=== PATIENT | male | born 1965 | race Caucasian/White ===

== ENCOUNTER 2019-03-25 10:04 | Inpatient (IN) ==
[2019-03-25 10:47] LABS: URINE SOURCE CLEAN CATCH
[2019-03-25 10:54] LABS: BILIRUBIN URINE NEGATIVE (NEGATIVE); BLOOD URINE MODERATE (NEGATIVE); COLOR YELLOW; GLUCOSE URINE NEGATIVE (NEGATIVE); KETONE URINE NEGATIVE (NEGATIVE); LEUKOCYTES URINE NEGATIVE (NEGATIVE); NITRITE URINE NEGATIVE (NEGATIVE); PH URINE 5.5; PROTEIN URINE TRACE mg/dL (NEGATIVE); SP GRAVITY URINE 1.026; TURBIDITY URINE CLEAR (CLEAR); UROBILINOGEN URINE NORMAL (NORMAL)
[2019-03-25 10:56] LABS: UR EPITHELIAL CELLS <10 /HPF (<10); URINE BACTERIA NEGATIVE /HPF; URINE RBC <10 /HPF (<10); URINE WBC <10 /HPF (<10)
[2019-03-25 11:08] LABS: BASO# 0.02 X1000 (0.0-0.2); BASO% 0.1 % (0.0-0.8); EOS# 0.01 X1000 (0.0-0.7); HEMATOCRIT 44.7 % (42.0-52.0); IMM GRAN# 0.09 X1000 (0.0-0.04); IMM GRAN% 0.3 % (0.0-0.5); LYMPH# 1.26 X1000 (1.2-3.4); LYMPH% 4.4 % (20.5-51.1); MCH 30.9 PG (27-31); MCHC 33.6 g/dL (33-37); MONO# 0.73 X1000 (0.11-0.59); MONO% 2.5 % (1.7-9.3); MPV 9.9 FL (7.4-10.4); NEUT# 26.82 X1000 (1.4-6.5); NEUT% 92.7 % (42.2-75.2); PLT 269 X1000 (130-400); RBC 4.86 XMIL (4.7-6.1); RDW 14.6 % (11.5-14.5); WBC 28.93 X1000 (4.8-10.8)
[2019-03-25] MEDS ORDERED: MORPHINE IV ONE ×2 (11:11→12:39)
--- NOTE | 2019-03-25 11:27 | PROVIDER DOCUMENTATION ---
HPI-Abdominal Pain/GI Problem - General Chief Complaint: Flank Pain Stated Complaint: STOMACH BACK PAIN Time Seen by Provider: 03/25/19 10:25 Source: patient Allergies/Adverse Reactions: Patient Allergies Allergy/AdvReac Type Severity Reaction Status Date / Time Penicillins Allergy Unknown Verified 03/25/19 10:11 - History of Present Illness-ABD Nature of Presenting Problems: Patient is a 53yo M who presents w/ c/o bilateral "sharp" lower quadrant abdo rachell pain that began yesterday afternoon. Reports the pain radiates to his low back. States the pain began yesterday after he took a laxative for constipation. Reports since the laxative, he has been having the severe abdominal pain. Reports a few episodes of diarrhea last night. Patient reports some nausea and subjective fever. Also reports some decreased urine output. States he was diagnosed by his PCP 1 month ago with Diverticulitis, based on symptom presentation, and given 2 different antibiotics for which he is unsure of the name. Patient reports he is unable to ease the abdominal pain. Afebrile in Triage (98.1). Patient appears to be in moderate distress. Abdominal Pain Onset Location: reports: RLQ, LLQ Pain Radiation: reports: back Quality of Pain: reports: sharp Severity in ED: reports: moderate Onset/Duration: reports: last night Timing: reports: still present Activities at Onset: reports: other (post laxative usage) Exposure to sick contacts?: No Modifying Factors: improves with: nothing Associated Symptoms: reports: diarrhea, fever/chills, nausea. denies: chest pain, shortness of breath, syncope, vomiting Last BM: last night Dark Stools Present?: reports: none noticed Rectal Bleeding: reports: none Rectal Pain: reports: none Emesis Description: reports: none Bruising or Bleeding Gums?: No Similar Symptoms Previously?: Yes (hx diverticulitis) Recently seen or treated by another doctor?: No Review of Systems - Adult - REVIEW OF SYSTEMS - ADULT Constitutional: reports: see HPI, chills, fever Eyes: reports: no symptoms reported Ears, Nose, Mouth & Throat: reports: no symptoms reported Cardiovascular: reports: no symptoms reported. denies: chest pain, palpitations Respiratory: reports: no symptoms reported. denies: cough, dyspnea on exertion, shortness of breath Gastrointestinal: reports: see HPI, abdominal pain, constipation, diarrhea, nausea. denies: vomiting Genitourinary: reports: see HPI, urinary retention. denies: dysuria, frequency Musculoskeletal: reports: see HPI, back pain. denies: neck pain Integumentary: reports: no symptoms reported Neurological: reports: no symptoms reported. denies: dizziness/vertigo, headache/migraines Psychiatric: reports: no symptoms reported Past History - Adult - PAST MEDICAL HISTORY-ADULT Review of Records: reports: Nursing Assessment Review, Medications Reviewed Gastrointestinal: reports: diverticulosis - IMMUNIZATION STATUS Childhood Immunizations: See Nurse Assessment Flu Vaccine: See Nurse Assessment - FAMILY HISTORY Family History: reviewed, not pertinent Physical Exam-General - PHYSICAL EXAM-ADULT Initial Vital Signs Reviewed: Yes - CONSTITUTIONAL General Appearance: alert, moderate distress. negative: lethargic, slow to respond, obtunded - EYES Eyes: PERRL/EOMI, pink conjunctivae - HEAD, EARS, NOSE, MOUTH & THROAT HENMT: normocephalic/atraumatic, moist mucous membranes - NECK Neck: non-tender, full range of motion, supple, normal inspection - RESPIRATORY Respiratory: chest non-tender, lungs clear, normal breath sounds, no pleuratic chest pain, no respiratory distress, no accessory muscle use. negative: crackles, rales, rhonchi, stridor, wheezing, retractions, splinting - CARDIOVASCULAR Cardiovascular: regular rate, rhythm, no gallop - GASTROINTESTINAL (ABDOMEN) Abdominal Exam: no organomegaly, abnormal bowel sounds (hypoactive all quadrants), tenderness Progress - PLAN OF CARE/RESULTS Progress/Plan/Lab Results: Vital Signs - 8 hr 03/25/19 10:07 Temperature 98.1 F Pulse Rate 84 Respiratory Rate 22 Blood Pressure 105/65 O2 Sat by Pulse Oximetry 96 Laboratory Results - last 24 hr 03/25/19 03/25/19 10:32 10:43 WBC 28.93 H RBC 4.86 Hgb 15.0 Hct 44.7 MCV 92.0 MCH 30.9 MCHC 33.6 RDW Std Deviation 14.6 H Plt Count 269 MPV 9.9 Immature Gran % (Auto) 0.3 Neut % (Auto) 92.7 H Lymph % (Auto) 4.4 L [place] % (Auto) 2.5 Eos % (Auto) 0.0 Baso % (Auto) 0.1 Immature Gran # (Auto) 0.09 H Neut # (Auto) 26.82 H Lymph # (Auto) 1.26 [place] # (Auto) 0.73 H Eos # (Auto) 0.01 Baso # (Auto) 0.02 Urine Source CLEAN CATCH Urine Color YELLOW Urine Turbidity CLEAR Urine pH 5.5 Ur Specific [place] 1.026 Urine Protein TRACE A Ur Glucose (Stick) NEGATIVE Ur Ketones (Stick) NEGATIVE Urine Blood MODERATE A Urine Nitrite NEGATIVE Urine Bilirubin NEGATIVE Urobilinogen Dipstick NORMAL Urine Leukocytes NEGATIVE Urine WBC (Auto) <10 Urine RBC (Auto) <10 U Epithel Cells (Auto) <10 Urine Bacteria (Auto) NEGATIVE Orders Category Date Time Status Saline Loc NOW Care 03/25/19 10:24 Active NPO Diet 03/25/19 11:11 Active CBC WITH ELECTRONIC DIFF [HEME] Stat Lab 03/25/19 10:43 Results COMPREHENSIVE METABOLIC PANEL [CHEM] Stat Lab 03/25/19 10:43 Received LIPASE [CHEM] Stat Lab 03/25/19 10:43 Received URINALYSIS W/POSS RFLX CULT [URINALYSIS] Stat Lab 03/25/19 10:32 Completed Morphine Med 03/25/19 11:11 Discontinued 2 mg IV NOW ONE Result Diagrams: 03/25/19 10:43 03/25/19 10:43 - REASSESSMENT Reassessment #1 Time Reassessed: 14:29 Status: other (Dr. Ramírez @ bedside) - CT/MRI 1 CT Study: Abdomen, Pelvis Impression: See EMR Report ([facility] - [address] [place] [address] [address] [address] [facility] - [address] [place] [address] Department of Imaging Patient: JOEL ALY Date: 03/25/19MR#: [id number] : 1965ADM Status: REG ERAt#: [id number] Age/Sex: 53/MRoom/Bed: Loc: ED Ordering Physician: Tosin Mistry Family Physician: Thiago Buck DO Reason for Procedure: abd pain/leukocytosis/hx diverticulitis Signed CT ABD/PELVIS W/IV CONT ONLY - 03/25/2019 INDICATION: abd pain/leukocytosis/hx diverticulitis COMPARISON: None FINDINGS: The lung bases are grossly clear. There is significant inflammation in the mid sigmoid colon compatible with diverticulitis. There is trace pelvic free fluid. There is also some trace free air in the upper abdomen. No bowel obstruction. Normal appendix. Urinary bladder, pelvis, and rectum are normal. Abdominal organs are normal. IMPRESSION: Sigmoid colon diverticulitis. Small amount of free air. Trace pelvic free fluid. This report was discussed with Tosin mistry on 03/25/2019 at 2:00 PM and was readback. This exam was pe rformed using automated exposure control, adjustment of mA or kV according to patient size, and/or use of iterative reconstruction technique Electronically signed by Geoff Aggarwal 03/25/2019 2:06 PM 03/25/19 1406 Interpreting Physician: Geoff Aggarwal MD Dictated Date/Time: 03/25/19 1352 cc: Tosin Mistry; Thiago Buck DO) - CONSULTS/PCP/HOSPITALIST Notification #1 *Consult/PCP/Hospitalist*: Darrell Surgeon Time Discussed: 14:20 Consult Disposition: Will see in ED Departure - Departure Date of Disposition Decision: 03/25/19 Time of Disposition Decision: 14:20 DIAGNOSIS: Diverticulitis of sigmoid colon, Bowel perforation Leukocytosis Qualifiers: Leukocytosis type: unspecified Qualified Code(s): D72.829 - Elevated white blood cell count, unspecified Disposition: ADMITTED INPATIENT 09 Certified Medical Emergency: Emergent Condition: Fair Referrals and Follow-Ups: Thiago Buck DO [Primary Care Provider] - - Critical Care Note This patient required my direct & personal management of CC.: No Attestation - Physician/ MADY Attestation Patient care was provided by Advanced Practice Provider:: Yes Advanced Practice Provider:: Tosin Mistry Advanced Practice Provider documentation review:: The Mid-level provider documentation, treatment plan and medical decision making was reviewed by the physician who agrees with all treatment and medical decision making by the MLP. The physician spent face to face time with patient:: No Advanced Practice Provider documentation review:: Supervising physician onsite and consulted in the evaluation and care of this patient. The physician did not have a face to face encounter with the patient.
[2019-03-25 11:54] LABS: AGAP 15; ALB/GLOB RATIO 1.5; ALBUMIN 3.7 g/dL (3.5-5.0); ALKALINE PHOSPHATASE 53 U/L (32-122); BUN 9 mg/dL (8-22); CALCIUM 8.3 mg/dL (8.8-10.2); CHLORIDE 104 mmol/L (98-107); COSMO 284; CREATININE 0.8 mg/dL (0.7-1.2); ESTIMATED GFR > 60; GLUCOSE 146 mg/dL (70-104); GOT 13 U/L (10-34); GPT 9 U/L (10-44); LIPASE 15 U/L (13-60); POTASSIUM 3.3 mmol/L (3.5-5.1); SODIUM 142 mmol/L (136-145); TCO2 23 mmol/L (25-35); TOTAL BILIRUBIN 0.62 mg/dL (0.20-1.00); TOTAL PROTEIN 6.2 g/dL (6.3-8.3)
[2019-03-25 11:58] LABS: ANISOCYTOSIS 1+; BANDS 3 % (0-1); LYMPHS 6 % (21-51); MONO 3 % (1-9); SEGS 88 % (42-75)
--- NOTE | 2019-03-25 14:08 | Diag Imaging Result Doc PS360 ---
CT ABD/PELVIS W/IV CONT ONLY - 03/25/2019 INDICATION: abd pain/leukocytosis/hx diverticulitis COMPARISON: None FINDINGS: The lung bases are grossly clear. There is significant inflammation in the mid sigmoid colon compatible with diverticulitis. There is trace pelvic free fluid. There is also some trace free air in the upper abdomen. No bowel obstruction. Normal appendix. Urinary bladder, pelvis, and rectum are normal. Abdominal organs are normal. IMPRESSION: Sigmoid colon diverticulitis. Small amount of free air. Trace pelvic free fluid. This report was discussed with Tosin mistry on 03/25/2019 at 2:00 PM and was readback. This exam was performed using automated exposure control, adjustment of mA or kV according to patient size, and/or use of iterative reconstruction technique Electronically signed by Geoff Aggarwal 03/25/2019 2:06 PM
[2019-03-25 14:14] LABS: INR 1.05; PROTIME 14.5 Seconds (11.0-16.0)
[2019-03-25 14:15] LABS: PTT 30.9 Seconds (22.3-41.8)
[2019-03-25] MEDS ORDERED: LEVAQUIN 500 MG/D5W 500 MG/100 ML IVPB IV ONE (14:16)
[2019-03-25] MEDS ORDERED: DILAUDID IV ONE (14:41)
[2019-03-25] MEDS ORDERED: MERREM 1 GM in NS 50 ML IV ONE (14:41)
--- NOTE | 2019-03-25 14:46 | Diag Imaging Result Doc PS360 ---
CHEST-1 VIEW - 03/25/2019 INDICATION: sepsis protocol COMPARISON: None FINDINGS: Lung volumes are low with some linear atelectasis in both lung bases. Otherwise no infiltrates. IMPRESSION: Low lung volumes with bibasilar linear atelectasis. Electronically signed by Geoff Aggarwal 03/25/2019 2:43 PM
[2019-03-25] MEDS: NS 1,000 ML IV SCH ×2 (15:06→17:33)
[2019-03-25] MEDS: MERREM 1 GM in NS 50 ML IV SCH ×2 (15:23→23:06)
--- NOTE | 2019-03-25 17:17 | HISTORY AND PHYSICAL ---
CHIEF COMPLAINT: Abdominal pain. HISTORY OF PRESENT ILLNESS: This is a 53-year-old male who has had a long history of recurrent diverticulitis, most recently about 3 or 4 weeks ago he took a course of ciprofloxacin and Flagyl. His symptoms did improve, however he says he never feels like he is totally free of symptoms and this has been going on for years. He continues to have frequent lower abdominal pain. It is usually mild. It got worse several weeks ago then got better and then became acutely worse yesterday evening. This has been associated with some chills and nausea. He thought he was constipated yesterday. He took a laxative and then had acute worsening of pain after that. He did have a colonoscopy earlier this year and was told he had some mild diverticulitis. PAST MEDICAL HISTORY: Arthritis. HOME MEDICATIONS: Meloxicam. PAST SURGICAL HISTORY: None pertinent. FAMILY HISTORY: Reviewed and noncontributory. SOCIAL HISTORY: Negative for tobacco. He drinks alcohol occasionally. No illicit drug use. ALLERGIES: Penicillin. He does not know what the reaction is. It was given to him when he was a child. REVIEW OF SYSTEMS: Ten systems reviewed and negative except as noted above. PHYSICAL EXAMINATION: VITAL SIGNS: Temperature 98.4 degrees, pulse 78, respirations 24, blood pressure 107/65, O2 saturation 93%. GENERAL: He is a well-developed, well-nourished male who looks his stated age and appears to be in pain. HEENT: Normocephalic, atraumatic. Extraocular muscles intact. Pupils equal, round, reactive to light. Sclerae anicteric. Moist mucous membranes. Hearing grossly normal. NECK: Supple. No thyromegaly. LYMPH: No cervical, supraclavicular or periumbilical lymph nodes appreciated. CV: Regular rate and rhythm. RESPIRATORY: Bilateral equal breath sounds. No work of breathing. GI: Somewhat firm and tender diffusely. The tenderness is worse in the left lower quadrant. He has some mild guarding. No rebound. No organomegaly or mass. No hernias. EXTREMITIES: No clubbing, cyanosis, or edema. SKIN: Warm and dry. No rash. MUSCULOSKELETAL: Moves all extremities equally and well. LABORATORY: White blood cell count 28,000, hemoglobin 15, hematocrit 44.7, platelet count 269,000. Complete metabolic profile reviewed and unremarkable. Urinalysis reviewed and shows a moderate amount of blood. IMAGING: Abdominal and pelvis CT scan was obtained which shows sigmoid diverticulitis with a small amount of pericolic free air and trace pelvic free fluid. ASSESSMENT AND PLAN: A 53-year-old male with acute complicated diverticulitis with what appears to be a small perforation. He is hemodynamically stable. He does have some peritoneal irritation, but at this time I am going to put him on IV Merrem, IV fluids, morphine and Zofran and see if we can calm his symptoms down conservatively at first enough that we may perform a bowel prep and a 1-stage partial resection this week. He understands that if his clinical picture worsens, then we would need to proceed urgently to the operating room for resection and diverting colostomy. cc: Donald Ramírez MD
[2019-03-25] MEDS: DILAUDID IV PRN ×2 (18:07→21:21)
[2019-03-26] MEDS: DILAUDID IV PRN ×5 (02:32→20:20)
[2019-03-26] MEDS: NS 1,000 ML IV SCH ×2 (02:34→15:35)
[2019-03-26] MEDS: MERREM 1 GM in NS 50 ML IV SCH ×2 (06:12→15:34)
--- NOTE | 2019-03-26 08:18 | Diag Imaging Result Doc PS360 ---
EXAM: ABDOMEN FLAT/UPRIGHT 03/26/2019 HISTORY: abdominal pain TECHNIQUE: Flat and upright abdomen COMMENT: There is gas and stool present in the ascending colon and gas throughout the transverse colon to the splenic flexure. There are distended gas-filled small bowel loops in the upper abdomen and right lower quadrant. Some gas is present in the rectum. IMPRESSION: Considering the findings on the recent CT examination, dilatation of the small bowel is presumably related to ileus. Electronically signed by Joao Reyes 03/26/2019 8:16 AM
[2019-03-26] MEDS ORDERED: VANCOMYCIN IV PER PHARMACY MISC SCH (08:30)
[2019-03-26 08:59] LABS: BASO# 0.02 X1000 (0.0-0.2); BASO% 0.1 % (0.0-0.8); EOS# 0.01 X1000 (0.0-0.7); HEMATOCRIT 42.3 % (42.0-52.0); HEMOGLOBIN 13.9 g/dL (14.0-18.0); IMM GRAN# 0.07 X1000 (0.0-0.04); IMM GRAN% 0.3 % (0.0-0.5); LYMPH# 1.28 X1000 (1.2-3.4); LYMPH% 5.3 % (20.5-51.1); MCH 30.8 PG (27-31); MCHC 32.9 g/dL (33-37); MCV 93.8 FL (81-99); MONO# 0.58 X1000 (0.11-0.59); MONO% 2.4 % (1.7-9.3); MPV 9.4 FL (7.4-10.4); NEUT# 22.06 X1000 (1.4-6.5); NEUT% 91.9 % (42.2-75.2); PLT 240 X1000 (130-400); RBC 4.51 XMIL (4.7-6.1); RDW 14.7 % (11.5-14.5); WBC 24.02 X1000 (4.8-10.8)
[2019-03-26 09:21] LABS: AGAP 11; BUN 8 mg/dL (8-22); CALCIUM 8.2 mg/dL (8.8-10.2); CHLORIDE 103 mmol/L (98-107); COSMO 279; CREATININE 0.8 mg/dL (0.7-1.2); ESTIMATED GFR > 60; GLUCOSE 94 mg/dL (70-104); POTASSIUM 3.4 mmol/L (3.5-5.1); SODIUM 141 mmol/L (136-145); TCO2 27 mmol/L (25-35)
[2019-03-26 09:35] LABS: ANISOCYTOSIS 1+; BANDS 5 % (0-1); LYMPHS 7 % (21-51); MONO 3 % (1-9); SEGS 85 % (42-75)
[2019-03-26] MEDS ORDERED: VANCOMYCIN 2,000 MG in NS 500 ML IV ONE (10:00)
--- NOTE | 2019-03-26 13:40 | GENERAL SURGERY PROGRESS NOTE ---
DATE: 03/26/2019 SUBJECTIVE: The patient does feel some better. His abdominal pain has decreased from a 10/10 at its worst now to a 5 at rest. It increases up to about am 8 when he moves around but he is able to get out of bed and get to the bathroom as needed. OBJECTIVE: T-max 100.1 degrees, pulse 88, respirations 20, blood pressure 108/66, O2 saturation 94%. General: He is alert and oriented x4. No acute distress. CV: Regular rate and rhythm. Respiratory: Bilateral breath sounds. No work of breathing. Gastrointestinal: Soft, nondistended. He is diffusely tender but less so than yesterday. No rebound or guarding today. Laboratory: White blood cell count 24,000, hemoglobin 13.9, hematocrit 42. Electrolytes reviewed and unremarkable. Imaging: Abdominal exam shows some dilation of small bowel, likely related to ileus. ASSESSMENT AND PLAN: A 53-year-old male with complicated diverticulitis, probably contained perforation and small bowel ileus. We will continue with conservative care for now. He is on Merrem. I have also added vancomycin for gram-positive cocci in his blood culture. If his symptoms and clinical picture continue to improve, we are planning a bowel prep and resection this week. cc: Donald Ramírez MD
[2019-03-26] MEDS: VANCOMYCIN 1,700 MG in NS 250 ML IV SCH (22:26)
[2019-03-27] MEDS: DILAUDID IV PRN ×6 (00:03→22:50)
[2019-03-27] MEDS: MERREM 1 GM in NS 50 ML IV SCH ×4 (00:04→16:39)
[2019-03-27] MEDS: NS 1,000 ML IV SCH ×2 (00:16→10:49)
[2019-03-27] MEDS: TYLENOL PO PRN ×2 (04:13→08:08)
[2019-03-27 06:46] LABS: AGAP 11; BUN 7 mg/dL (8-22); CALCIUM 8.1 mg/dL (8.8-10.2); CHLORIDE 101 mmol/L (98-107); COSMO 277; CREATININE 0.7 mg/dL (0.7-1.2); ESTIMATED GFR > 60; GLUCOSE 99 mg/dL (70-104); POTASSIUM 3.9 mmol/L (3.5-5.1); SODIUM 140 mmol/L (136-145); TCO2 28 mmol/L (25-35)
[2019-03-27 06:47] LABS: BASO# 0.01 X1000 (0.0-0.2); EOS# 0.05 X1000 (0.0-0.7); EOS% 0.2 % (0.0-10.0); HEMATOCRIT 41.4 % (42.0-52.0); HEMOGLOBIN 13.5 g/dL (14.0-18.0); IMM GRAN# 0.04 X1000 (0.0-0.04); IMM GRAN% 0.2 % (0.0-0.5); LYMPH# 1.19 X1000 (1.2-3.4); LYMPH% 4.9 % (20.5-51.1); MCH 30.8 PG (27-31); MCHC 32.6 g/dL (33-37); MCV 94.3 FL (81-99); MONO# 0.75 X1000 (0.11-0.59); MONO% 3.1 % (1.7-9.3); MPV 9.8 FL (7.4-10.4); NEUT# 22.28 X1000 (1.4-6.5); NEUT% 91.6 % (42.2-75.2); PLT 249 X1000 (130-400); RBC 4.39 XMIL (4.7-6.1); RDW 14.2 % (11.5-14.5); WBC 24.32 X1000 (4.8-10.8)
[2019-03-27] MEDS: VANCOMYCIN 1,700 MG in NS 250 ML IV SCH ×2 (10:49→22:51)
[2019-03-27] MEDS: NORCO-10 PO PRN ×2 (14:06→19:28)
--- NOTE | 2019-03-27 18:50 | GENERAL SURGERY PROGRESS NOTE ---
DATE: 03/27/2019 SUBJECTIVE: The patient continues to have some improvement in abdominal pain. He is getting up out of bed easier now. His pain is minimal when he is lying still. He has had a little nausea but no vomiting. He has passed some gas. OBJECTIVE: Vital Signs: He is afebrile. Vital signs are stable. General: He is awake, alert, oriented x4. No acute distress. Cardiovascular: Regular rate and rhythm. Respiratory: Bilateral breath sounds. No work of breathing. Gastrointestinal: He now has focal tenderness in the left lower quadrant, but no longer has diffuse tenderness. He does have bowel sounds. LABORATORY: White cell count 24,000, hemoglobin 13, hematocrit 41. Electrolytes reviewed unremarkable. ASSESSMENT AND PLAN: A 53-year-old male with perforated diverticulitis. He is improving on antibiotics. We will continue these. I will start him on sips of clear liquids today. If he continues to make improvement in the next 48 hours, we are planning discharge with elective robotic resection next week. cc: Donald Ramírez MD
[2019-03-28] MEDS: MERREM 1 GM in NS 50 ML IV SCH ×4 (01:30→23:59)
[2019-03-28] MEDS: NORCO-10 PO PRN (02:55)
[2019-03-28 06:22] LABS: BASO# 0.01 X1000 (0.0-0.2); BASO% 0.1 % (0.0-0.8); EOS# 0.17 X1000 (0.0-0.7); HEMATOCRIT 37.3 % (42.0-52.0); HEMOGLOBIN 12.3 g/dL (14.0-18.0); LYMPH# 0.72 X1000 (1.2-3.4); LYMPH% 4.4 % (20.5-51.1); MCH 30.9 PG (27-31); MCV 93.7 FL (81-99); MONO# 0.73 X1000 (0.11-0.59); MONO% 4.5 % (1.7-9.3); MPV 10.1 FL (7.4-10.4); NEUT# 14.77 X1000 (1.4-6.5); PLT 243 X1000 (130-400); RBC 3.98 XMIL (4.7-6.1); RDW 13.6 % (11.5-14.5)
[2019-03-28] MEDS ORDERED: DILAUDID IV ONE (08:09)
[2019-03-28] MEDS: TORADOL IV SCH ×3 (08:39→21:12)
[2019-03-28] MEDS: LOVENOX SUBQ SCH (08:40)
[2019-03-28] MEDS: ZOFRAN IV PRN (08:47)
[2019-03-28] MEDS: PERCOCET-10 PO PRN ×3 (10:24→23:59)
--- NOTE | 2019-03-28 12:50 | GENERAL SURGERY PROGRESS NOTE ---
DATE: 03/28/2019 SUBJECTIVE: The patient was doing well yesterday afternoon and then over the course of the night, he tried to transition to less Dilaudid and use [place] instead but, unfortunately, he is not getting much pain relief and is hurting pretty good this morning. He tolerated some clears but did have some nausea. OBJECTIVE: He is afebrile. Vital signs are stable. General: He is awake and alert. He is oriented x3. He does appear to be in pain. CV: Regular rate and rhythm. Respiratory: Clear bilateral breath sounds. No work of breathing. GI: Soft, nondistended. He is a little more diffusely tender but especially in the left lower quadrant. Laboratory: White blood cell count 16,000, hemoglobin 12.3. ASSESSMENT AND PLAN: A 53-year-old male with perforated diverticulitis. Overall, I think he is slowly improving given the lack of fever and decreasing white blood cell count. We are going to change his pain medicine from [place] to Percocet and initiate Toradol. He is also on Lovenox for deep venous thrombosis prophylaxis. I will stop the vancomycin because his blood cultures only had one out of two positive and it was coagulase-negative staphylococcus, so likely a contaminant. cc: Donald Ramírez MD
[2019-03-28] MEDS: NS 1,000 ML IV SCH ×2 (15:26→15:38)
[2019-03-28] MEDS: DILAUDID IV PRN (21:12)
[2019-03-29] MEDS: TORADOL IV SCH ×4 (02:54→21:32)
[2019-03-29] MEDS: DILAUDID IV PRN ×3 (05:05→21:31)
[2019-03-29 06:29] LABS: BASO# 0.01 X1000 (0.0-0.2); BASO% 0.1 % (0.0-0.8); EOS# 0.37 X1000 (0.0-0.7); EOS% 3.4 % (0.0-10.0); HEMATOCRIT 38.5 % (42.0-52.0); HEMOGLOBIN 12.5 g/dL (14.0-18.0); IMM GRAN# 0.03 X1000 (0.0-0.04); IMM GRAN% 0.3 % (0.0-0.5); LYMPH# 1.04 X1000 (1.2-3.4); LYMPH% 9.6 % (20.5-51.1); MCHC 32.5 g/dL (33-37); MCV 92.5 FL (81-99); MONO# 0.79 X1000 (0.11-0.59); MONO% 7.3 % (1.7-9.3); MPV 9.9 FL (7.4-10.4); NEUT# 8.62 X1000 (1.4-6.5); NEUT% 79.3 % (42.2-75.2); PLT 299 X1000 (130-400); RBC 4.16 XMIL (4.7-6.1); WBC 10.86 X1000 (4.8-10.8)
[2019-03-29 06:49] LABS: AGAP 8; BUN 4 mg/dL (8-22); CALCIUM 8.2 mg/dL (8.8-10.2); CHLORIDE 104 mmol/L (98-107); COSMO 284; CREATININE 0.7 mg/dL (0.7-1.2); ESTIMATED GFR > 60; GLUCOSE 110 mg/dL (70-104); POTASSIUM 3.5 mmol/L (3.5-5.1); SODIUM 144 mmol/L (136-145); TCO2 32 mmol/L (25-35)
[2019-03-29] MEDS: NS 1,000 ML IV SCH (08:03)
[2019-03-29] MEDS: PERCOCET-10 PO PRN ×2 (08:03→18:09)
[2019-03-29] MEDS: MERREM 1 GM in NS 50 ML IV SCH ×2 (10:42→18:10)
[2019-03-29] MEDS: FLAGYL PO SCH ×3 (10:45→21:32)
[2019-03-29] MEDS: LEVAQUIN PO SCH (10:45)
[2019-03-29] MEDS: LOVENOX SUBQ SCH (10:45)
--- NOTE | 2019-03-29 19:19 | GENERAL SURGERY PROGRESS NOTE ---
DATE: 03/29/2019 SUBJECTIVE: The patient is feeling better overall. He still has pain on the left side, but it is not as intense as the first few days. He has passed a little gas, but not much. He has had no vomiting. He is tolerating a clear liquid diet. He is walking. OBJECTIVE: He is afebrile. Vital signs are stable. Generally he is awake, alert, oriented x4. No acute distress. Respiratory: No work of breathing. GI: Soft, nondistended. Moderately tender in the left lower quadrant. No diffuse tenderness. No rebound or guarding. LABORATORY DATA: White blood cell count 10,000. ASSESSMENT AND PLAN: He has perforated diverticulitis. He is slowly improving on broad-spectrum antibiotics and some bowel rest; however, he has reached a point now where I will increase him to a full liquid diet and transition him to oral antibiotics. We are approaching probable discharge tomorrow, with planned robotic resection next week. cc: Donald Ramírez MD
[2019-03-29] MEDS: ZOFRAN IV PRN (21:31)
[2019-03-30] MEDS: PERCOCET-10 PO PRN ×2 (00:47→11:53)
[2019-03-30] MEDS: FLAGYL PO SCH ×2 (02:08→09:29)
[2019-03-30] MEDS: TORADOL IV SCH ×2 (02:09→09:29)
[2019-03-30] MEDS: DILAUDID IV PRN ×2 (02:09→07:17)
[2019-03-30] MEDS: MERREM 1 GM in NS 50 ML IV SCH ×2 (02:11→09:28)
[2019-03-30 06:18] LABS: BASO# 0.01 X1000 (0.0-0.2); BASO% 0.1 % (0.0-0.8); EOS# 0.23 X1000 (0.0-0.7); EOS% 2.5 % (0.0-10.0); HEMATOCRIT 37.1 % (42.0-52.0); HEMOGLOBIN 12.3 g/dL (14.0-18.0); IMM GRAN# 0.02 X1000 (0.0-0.04); IMM GRAN% 0.2 % (0.0-0.5); LYMPH# 0.97 X1000 (1.2-3.4); LYMPH% 10.6 % (20.5-51.1); MCH 30.3 PG (27-31); MCHC 33.2 g/dL (33-37); MCV 91.4 FL (81-99); MONO# 0.71 X1000 (0.11-0.59); MONO% 7.8 % (1.7-9.3); MPV 9.7 FL (7.4-10.4); NEUT# 7.19 X1000 (1.4-6.5); NEUT% 78.8 % (42.2-75.2); PLT 322 X1000 (130-400); RBC 4.06 XMIL (4.7-6.1); RDW 13.6 % (11.5-14.5); WBC 9.13 X1000 (4.8-10.8)
[2019-03-30] MEDS ORDERED: COLACE PO SCH (09:00)
[2019-03-30] MEDS ORDERED: MILK OF MAGNESIA PO SCH (09:00)
[2019-03-30] MEDS: LOVENOX SUBQ SCH (09:29)
[2019-03-30] MEDS: LEVAQUIN PO SCH (09:29)
[2019-03-30 11:43] VITALS: BP 99/67
--- NOTE | 2019-03-31 06:54 | DISCHARGE SUMMARY ---
ADMISSION DATE: 03/25/2019 DISCHARGE DATE: 03/30/2019 ADMITTING DIAGNOSIS: Complicated diverticulitis with contained perforation. DISCHARGE DIAGNOSIS: Complicated diverticulitis with contained perforation. PROCEDURES: None. ADMITTING PHYSICIAN: Dr. Donald Ramírez. BRIEF HISTORY: This is a 53-year-old male who has a long history of recurrent diverticulitis who began developing severe left lower quadrant pain. He presented to the emergency room with signs of peritonitis and initial imaging revealed sigmoid diverticulitis with a small amount of pericolic free air and trace pelvic free fluid. He was admitted and placed on bowel rest and broad-spectrum antibiotics. HOSPITAL COURSE: We were able to significantly improve his symptoms during his hospitalization with initial bowel rest, bought broad-spectrum antibiotics, antiemetics, pain medicine, and IV fluids. He had 1/2 blood cultures positive for gram-positive cocci. Vancomycin was added initially, and then removed when it came back as a contaminant as coag negative Staph aureus. By 03/28, he was doing well. He was transitioning to more oral pain medicine and less IV pain medicine. He was tolerating a clear liquid diet with minimal nausea. His vital signs were stable. He was afebrile. His abdominal exam revealed less tenderness. His white blood cell count was improving. Initially, it was 28,000. On that day, it was 16,000. On 03/30/2019, he was tolerating a full liquid diet. He was passing gas. He was afebrile. His white blood cell count was normal. His abdominal exam revealed some residual focal tenderness in the left lower quadrant, but no peritoneal signs. He was discharged on 03/30/2019 as his clinical picture had significantly improved. We are planning elective robotic sigmoidectomy and low anterior resection next week. Rather than having him sit in the hospital for 3 or 4 more days, we will discharge him home and have him come in for elective surgery next week. We went over the risks and benefits of surgery including bleeding, infection, injury to surrounding organs such as the bladder, intestines or ureter, anastomotic dehiscence, incisional hernia, and other imponderables. He understands and agrees to proceed. INSTRUCTIONS: He will do a MiraLAX and Dulcolax bowel prep the day before surgery. I gave him explicit verbal and printed instructions. He will eat a soft diet and liquids the day before surgery. He knows to recontact us if he has any spiking fevers or worsening abdominal pain over the weekend. DISCHARGE MEDICATIONS: 1. Levaquin 750 mg p.o. daily, 2. Flagyl 500 mg p.o. t.i.d. 3. Colace 100 mg p.o. b.i.d. 4. Percocet 10 mg p.o. q.6 hours p.r.n. pain. 5. He will resume his home Flomax and Lunesta, but he will hold his Mobic. cc: Donald Ramírez MD
== END 2019-03-30 13:55 | disposition home or self-care (01) | DRG 392 ==
LOC: ED 10:04 → 4N 10:05
PROVIDERS: ADMIT Surgery; ATTEND Surgery
CPT/HCPCS: 71010; 71045; 74019; 74020; 74177; 80048; 80053; 81001; 82550; 83605; 83690; 84484; 85025; 85610; 85730; 86850; 86900; 86901; 87040; 96365; 96375; 96376; 99285; A9270; J1170; J1650; J1885; J1956; J2185; J2270; J2405; J3370; J7030; J7040; J7050; Q9967

== ENCOUNTER 2019-04-04 05:40 | Inpatient (IN) ==
[2019-04-04] MEDS ORDERED: INVANZ 1 GM/NS 1 GM/50 ML IVPB ONE (05:53)
[2019-04-04] MEDS ORDERED: LR 1,000 ML ONE ×2 (05:53→06:33)
[2019-04-04] MEDS ORDERED: DIPRIVAN 1% ONE (06:28)
[2019-04-04] MEDS ORDERED: ROBINUL ONE ×3 (06:29→11:45)
[2019-04-04] MEDS ORDERED: QUELICIN (DOSE) ONE (06:29)
[2019-04-04] MEDS ORDERED: XYLOCAINE-MPF 2% ONE (06:29)
[2019-04-04] MEDS ORDERED: SENSORCAINE-MPF 0.5%/EPI 1:200,000 ONE (06:33)
[2019-04-04] MEDS ORDERED: SODIUM CHLORIDE 0.9% 10 ML ONE (06:56)
[2019-04-04] MEDS ORDERED: MARCAINE 0.25% ONE (06:56)
[2019-04-04] MEDS ORDERED: EXPAREL 1.3% ONE (06:56)
[2019-04-04] MEDS ORDERED: ZOFRAN ONE ×2 (07:07→10:54)
[2019-04-04] MEDS ORDERED: DECADRON ONE ×2 (07:07→10:54)
[2019-04-04] MEDS ORDERED: OFIRMEV 1000 MG/ISOTONIC SOLN 0 MG/0 ML BOTTLE ONE (07:07)
[2019-04-04] MEDS ORDERED: NORCURON ONE (07:11)
[2019-04-04] MEDS ORDERED: ZEMURON ONE ×5 (07:11→11:44)
[2019-04-04] MEDS ORDERED: FENTANYL ONE (07:18)
[2019-04-04 08:28] LABS: URINE SOURCE CATH
[2019-04-04 08:31] LABS: BILIRUBIN URINE NEGATIVE (NEGATIVE); BLOOD URINE NEGATIVE (NEGATIVE); COLOR YELLOW; GLUCOSE URINE NEGATIVE (NEGATIVE); KETONE URINE 40 mg/dL (NEGATIVE); LEUKOCYTES URINE NEGATIVE (NEGATIVE); NITRITE URINE NEGATIVE (NEGATIVE); PH URINE 7.5; PROTEIN URINE NEGATIVE (NEGATIVE); SP GRAVITY URINE 1.012; TURBIDITY URINE CLEAR (CLEAR); UROBILINOGEN URINE NORMAL (NORMAL)
[2019-04-04 08:32] LABS: UR EPITHELIAL CELLS <10 /HPF (<10); URINE BACTERIA NEGATIVE /HPF; URINE RBC <10 /HPF (<10); URINE WBC <10 /HPF (<10)
[2019-04-04] MEDS ORDERED: NEOSTIGMINE ONE ×3 (08:46→11:45)
[2019-04-04] MEDS ORDERED: BRIDION ONE (10:29)
[2019-04-04] MEDS ORDERED: TORADOL ONE ×2 (10:34→10:54)
[2019-04-04] MEDS: DILAUDID ONE ×2 (10:47→10:55)
[2019-04-04] MEDS ORDERED: NS 1,000 ML ONE (10:50)
[2019-04-04] MEDS ORDERED: OFIRMEV 1000 MG/ISOTONIC SOLN 1,000 MG/100 ML BOTTLE ONE (10:52)
[2019-04-04] MEDS ORDERED: KETAMINE ONE (10:54)
[2019-04-04] MEDS ORDERED: EPHEDRINE ONE (11:37)
[2019-04-04] MEDS ORDERED: ZOFRAN IV PRN (11:45)
[2019-04-04] MEDS ORDERED: SALINE LOCK IV FLUID XX ONE (11:45)
--- NOTE | 2019-04-04 11:56 | OPERATIVE NOTE ---
PROCEDURE DATE: 04/04/2019 PREOPERATIVE DIAGNOSIS: Recurrent complicated diverticulitis. POSTOPERATIVE DIAGNOSIS: Recurrent complicated diverticulitis with intraabdominal abscess. PROCEDURE: Robotic converted to open sigmoid colectomy with splenic flexure mobilization. SURGEON: Donald Ramírez MD RESIDENTIAL [employer] SEALING TECHNICIAN: DUDLEY Auguste. ANESTHESIA: General. ESTIMATED BLOOD LOSS: 50 mL. COMPLICATIONS: None apparent. SPECIMEN: Sigmoid colon and intra-abdominal abscess for culture and sensitivity. FINDINGS: He had severe inflammatory adhesions of small bowel loops and sigmoid colon in the pelvis. There was an interloop abscess. The overall inflammatory process required an open operation for safe dissection/resection and anastomosis. TECHNIQUE: He was brought to the operating room and placed supine on the table. General anesthesia was induced. A Samano catheter was placed. He was then placed in stirrups. He was appropriately padded, and then prepped and draped in the usual sterile fashion. 0.25% Marcaine with epinephrine was used to anesthetize our incisions. An 11 mm incision was made just above the umbilicus and to the right. The fascia was exposed and incised sharply. Entry into the peritoneal cavity was obtained under direct vision with the Optiview device. Pneumoperitoneum was established. The camera was inserted. There was no evidence of injury to underlying structures. Survey of the abdomen revealed inflammatory phlegmon process in the pelvis involving the sigmoid colon rectum and several small bowel loops. However, the rest of the omentum, transverse colon, and liver appeared to be normal. The cecum and appendix appeared to be normal. We proceeded to place our robotic ports. A 15 mm incision and port were placed in the right lower quadrant. An 8 mm incision and port was placed in the left lateral abdomen, and left mid abdomen. A 5 mm incision medical assistant per diem port was placed in the right upper quadrant. We then placed the patient in Trendelenburg and left rotation. The robot was brought in and docked to the ports. The instruments were inserted, and I went to the console. I began by trying to bluntly separate the loops of bowel in the pelvis. I found significant inflammatory rind. I was able to enter an interloop abscess. This was suctioned out. A portion was sent for culture and sensitivity. I attempted to mobilize this bowel out of the pelvis. However, the adhesions were fairly significant, and I felt there was a risk of tearing the bowel. The visualization was poor so I decided to convert to an open procedure fairly early. We rejoined the sterile field. The robot was undocked. The instruments were removed. The robot was removed. I made an incision in the midline above the umbilicus down to the symphysis pubis, and carried this down through the fascia with cautery opening up the peritoneal cavity safely. A wound protector was placed, and a Nia retractor. I was able to bluntly break up the adhesions of the small bowel, and using Metzenbaum scissors the abscess was completely suctioned out. There were no signs of any enterocolofistula or colovesical fistula. I then incised the white line of Toldt laterally along the descending colon, and followed this up cephalad to the splenic flexure. Given the disease process in the distal sigmoid colon and upper rectum, I felt like I would need splenic flexure mobilization to relieve the tension adequately for the anastomosis so I came around the gastrocolic and splenocolic attachments of the omentum and retroperitoneum with cautery and the LigaSure device until the splenic flexure was completely mobilized to the midline. The descending colon was also mobilized to the midline. We then turned our attention to the lateral peritoneal attachments of the sigmoid colon. I incised them with cautery carefully, and then identified the left ureter and safely stayed away from it and the gonadal vessels. I continued the peritoneal incision along the left lateral colon with cautery down to the pelvic floor. On the right side, I incised the peritoneum down to the pelvic floor in same fashion. I then divided the descending colon at the junction of the sigmoid colon with a linear BALTAZAR stapler, and divided the sigmoid mesentery with the LigaSure device down to the posterior aspect of the mid rectum where I had left some rectal mesenteric attachments. This appeared to be distal to the diseased area. The rectum appeared to be viable in this location. I placed a clamp on the proximal side, or on the specimen side, then divided it with curved Jensen scissors distal to this and passed the specimen off the field. The mucosa of the rectum appeared normal. There was good blood supply to it. I then brought the proximal stapled end down to our open rectum, and laid it in a end-to-side fashion and began the anastomosis. A posterior row of interrupted 3-0 silk seromuscular sutures were placed from the posterior rectum to the anterior descending colon along the tinea maria de jesus. A colotomy was made with cautery, and then the posterior inner layer of 3-0 Vicryl was begun in a running locking fashion in two directions bringing it around anteriorly with a baseball stitch and completing the inner layer. The anterior outer layer was then complete with another row of interrupted seromuscular 3-0 silk sutures. The anastomosis was without tension. There was good blood supply and appeared to be patent. There were no signs of leakage. I then washed out the left pericolic gutter and right pericolic gutter with warm saline, and suctioned this out. There was no signs of any bleeding or undrained abscess pockets. I then returned the bowel to its anatomic position in the peritoneal cavity. I closed the peritoneum with a running #1 Vicryl. The fascia was closed with a running #1 looped Maxon. The camera port site fascia and right lower quadrant port site fascia were closed with 0 Vicryl. The skin was closed with skin clips. There were no apparent complications. He was awakened in stable condition and transferred to the recovery room. cc: Donald Ramírez MD MTDD
[2019-04-04] MEDS: PERCOCET-10 PO PRN ×3 (12:46→22:06)
[2019-04-04] MEDS: NS 1,000 ML IV SCH ×2 (13:28→23:34)
[2019-04-04] MEDS: DILAUDID IV PRN ×2 (13:41→23:33)
[2019-04-04] MEDS: AMBIEN PO SCH (20:40)
[2019-04-04] MEDS: COLACE PO SCH (20:40)
[2019-04-04] MEDS: PERIDEX MT SCH (20:41)
[2019-04-04] MEDS: LOVENOX SUBQ SCH (20:41)
[2019-04-05] MEDS: PERCOCET-10 PO PRN ×4 (03:22→18:43)
[2019-04-05] MEDS: DILAUDID IV PRN ×4 (04:34→22:30)
[2019-04-05] MEDS: INVANZ 1 GM/NS 1 GM/50 ML IVPB IV SCH (06:03)
[2019-04-05 07:03] LABS: BASO# 0.01 X1000 (0.0-0.2); EOS# 0.06 X1000 (0.0-0.7); EOS% 0.3 % (0.0-10.0); HEMOGLOBIN 12.1 g/dL (14.0-18.0); LYMPH# 2.35 X1000 (1.2-3.4); LYMPH% 10.4 % (20.5-51.1); MCH 30.3 PG (27-31); MCHC 32.7 g/dL (33-37); MCV 92.7 FL (81-99); MONO# 1.53 X1000 (0.11-0.59); MONO% 6.8 % (1.7-9.3); MPV 9.3 FL (7.4-10.4); NEUT# 18.62 X1000 (1.4-6.5); NEUT% 82.5 % (42.2-75.2); PLT 739 X1000 (130-400); RBC 3.99 XMIL (4.7-6.1); RDW 14.3 % (11.5-14.5); WBC 22.57 X1000 (4.8-10.8)
[2019-04-05 07:27] LABS: AGAP 11; BUN 5 mg/dL (8-22); CALCIUM 7.5 mg/dL (8.8-10.2); CHLORIDE 104 mmol/L (98-107); COSMO 281; CREATININE 0.5 mg/dL (0.7-1.2); ESTIMATED GFR > 60; GLUCOSE 113 mg/dL (70-104); POTASSIUM 2.9 mmol/L (3.5-5.1); SODIUM 142 mmol/L (136-145); TCO2 27 mmol/L (25-35)
[2019-04-05] MEDS: FLOMAX PO SCH (08:36)
[2019-04-05] MEDS: COLACE PO SCH ×2 (08:36→20:31)
[2019-04-05] MEDS: TORADOL IV SCH ×3 (08:37→20:31)
[2019-04-05] MEDS: PERIDEX MT SCH ×2 (08:37→20:31)
--- NOTE | 2019-04-05 08:37 | GENERAL SURGERY PROGRESS NOTE ---
DATE: 04/05/2019 SUBJECTIVE: He is complaining of abdominal pain and some reflux or regurgitation. He has not passed flatus. However, he has voided and has walked the halls multiple times. OBJECTIVE: He is afebrile. Vital signs are stable. Urine output a little over 2 L. General: He is awake and alert. He is oriented x4. No acute distress. CV: Regular rate and rhythm. Respiratory: Clear bilateral breath sounds. No increased work of breathing. GI: Soft. Mildly distended. Moderately tender throughout. Incisional dressings are dry. Hypoactive bowel sounds. Laboratory: White blood cell count is 22,000, hemoglobin 12, hematocrit 37. Electrolytes reviewed and notable for potassium of 2.9. ASSESSMENT AND PLAN: A 53-year-old male postoperative day 1 of sigmoidectomy for perforated diverticulitis with drainage of abscess. He will remain on Invanz for the infection. We are following his culture results. We will replace his potassium and switch him to maintenance fluids. I will add Toradol for pain control and recheck his labs in the morning. cc: Donald Ramírez MD
[2019-04-05] MEDS: POTASSIUM CHLORIDE 20 MEQ/SWI 20 MEQ/100 ML IVPB IV SCH ×3 (10:14→18:48)
[2019-04-05] MEDS: D5 1/2 NS + KCL 20 MEQ 1,000 ML IV SCH (10:50)
[2019-04-05] MEDS: AMBIEN PO SCH (20:31)
[2019-04-05] MEDS: LOVENOX SUBQ SCH (20:31)
[2019-04-06] MEDS: D5 1/2 NS + KCL 20 MEQ 1,000 ML IV SCH ×2 (00:13→14:03)
[2019-04-06] MEDS: PERCOCET-10 PO PRN ×3 (00:13→14:03)
[2019-04-06] MEDS: TORADOL IV SCH ×4 (02:30→20:47)
[2019-04-06] MEDS: INVANZ 1 GM/NS 1 GM/50 ML IVPB IV SCH (04:45)
[2019-04-06 07:34] LABS: BASO# 0.06 X1000 (0.0-0.2); BASO% 0.4 % (0.0-0.8); EOS# 0.39 X1000 (0.0-0.7); EOS% 2.9 % (0.0-10.0); HEMATOCRIT 36.3 % (42.0-52.0); IMM GRAN# 0.13 X1000 (0.0-0.04); LYMPH# 1.69 X1000 (1.2-3.4); LYMPH% 12.5 % (20.5-51.1); MCH 30.2 PG (27-31); MCHC 33.1 g/dL (33-37); MCV 91.2 FL (81-99); MONO# 1.23 X1000 (0.11-0.59); MONO% 9.1 % (1.7-9.3); MPV 9.4 FL (7.4-10.4); NEUT# 9.97 X1000 (1.4-6.5); NEUT% 74.1 % (42.2-75.2); PLT 675 X1000 (130-400); RBC 3.98 XMIL (4.7-6.1); RDW 14.2 % (11.5-14.5); WBC 13.47 X1000 (4.8-10.8)
[2019-04-06 07:51] LABS: AGAP 10; BUN 3 mg/dL (8-22); CALCIUM 7.8 mg/dL (8.8-10.2); CHLORIDE 102 mmol/L (98-107); COSMO 278; CREATININE 0.5 mg/dL (0.7-1.2); ESTIMATED GFR > 60; GLUCOSE 106 mg/dL (70-104); POTASSIUM 3.5 mmol/L (3.5-5.1); SODIUM 141 mmol/L (136-145); TCO2 29 mmol/L (25-35)
[2019-04-06 08:06] LABS: EOS 1 % (1-10); LYMPHS 14 % (21-51); MONO 4 % (1-9); SEGS 75 % (42-75)
[2019-04-06] MEDS: DILAUDID IV PRN ×4 (08:38→23:53)
[2019-04-06] MEDS: PERIDEX MT SCH ×2 (09:13→20:47)
[2019-04-06] MEDS: FLOMAX PO SCH (09:13)
[2019-04-06] MEDS: COLACE PO SCH ×2 (09:13→20:47)
--- NOTE | 2019-04-06 09:16 | GENERAL SURGERY PROGRESS NOTE ---
DATE: 04/06/2019 SUBJECTIVE: The patient is feeling better today. He continues to get up and ambulate several times. He is tolerating clear liquids, but no flatus yet. OBJECTIVE: Vital Signs: He is afebrile. Vital signs are stable. General: He is awake, alert, oriented x4. No acute distress. Respiratory: No work of breathing. GI: Soft, minimally distended, more active bowel sounds. Incisions are dry and his abdomen is appropriately tender. LABORATORY: White blood cell count 13,000, hemoglobin 12, hematocrit 36. Electrolytes reviewed and unremarkable. ASSESSMENT/PLAN: A 53-year-old male postoperative day 2 open sigmoid colectomy and drainage of intraabdominal abscess for perforated diverticulitis. He is making good progress. We will continue his maintenance intravenous fluids and clear liquid diet and his Invanz. His microbiology culture is positive for gram-negative rods. The identification is still pending. cc: Donald Ramírez MD
[2019-04-06] MEDS: AMBIEN PO SCH (20:47)
[2019-04-06] MEDS: LOVENOX SUBQ SCH (20:47)
[2019-04-07] MEDS: PERCOCET-10 PO PRN ×5 (02:33→21:21)
[2019-04-07] MEDS: TORADOL IV SCH ×4 (03:34→21:13)
[2019-04-07] MEDS: D5 1/2 NS + KCL 20 MEQ 1,000 ML IV SCH (04:26)
[2019-04-07] MEDS: DILAUDID IV PRN ×3 (05:06→18:39)
[2019-04-07] MEDS: INVANZ 1 GM/NS 1 GM/50 ML IVPB IV SCH (06:22)
[2019-04-07] MEDS: COLACE PO SCH ×2 (08:15→21:13)
[2019-04-07] MEDS: PERIDEX MT SCH ×2 (08:15→21:13)
[2019-04-07] MEDS: FLOMAX PO SCH (08:15)
--- NOTE | 2019-04-07 10:15 | GENERAL SURGERY PROGRESS NOTE ---
DATE: 04/07/2019 SUBJECTIVE: The patient is doing okay. He has some residual abdominal pain, but seems to be slowly improving. No nausea or vomiting. He is tolerating a clear liquid diet. He does not have much appetite. No flatus or bowel movement yet. He is ambulating and voiding. OBJECTIVE: Vital Signs: He is afebrile. Vital signs are stable. Urine output 3345 mL. CV: Regular rate and rhythm. Respiratory: Bilateral equal breath sounds. No work of breathing. GI: Soft, nondistended, appropriately tender. His bowel sounds are slightly hypoactive. Incisions are intact and dry. No erythema. MICROBIOLOGY: His abscess culture grew ESBL E coli, sensitive to imipenem, gentamicin, amikacin, Bactrim and tobramycin. PATHOLOGY REPORT: Reviewed which was consistent with acute diverticulitis and abscess formation. ASSESSMENT/PLAN: A 53-year-old male postoperative day 3 open sigmoidectomy and washout of abscess. He is doing okay. I will keep him on a full liquid diet today. We are awaiting better return of bowel function prior to discharge. At discharge, I will send him out on Bactrim for 5 more days. I will also stop his IV fluids today. cc: Donald Ramírez MD
[2019-04-07] MEDS: LOVENOX SUBQ SCH (21:13)
[2019-04-07] MEDS: AMBIEN PO SCH (21:14)
[2019-04-08] MEDS: TORADOL IV SCH ×5 (02:15→20:00)
[2019-04-08] MEDS: PERCOCET-10 PO PRN ×4 (03:46→22:20)
[2019-04-08] MEDS: INVANZ 1 GM/NS 1 GM/50 ML IVPB IV SCH (06:27)
[2019-04-08] MEDS: COLACE PO SCH ×2 (08:27→22:20)
[2019-04-08] MEDS: FLOMAX PO SCH (08:27)
[2019-04-08] MEDS: PERIDEX MT SCH ×2 (08:27→22:20)
--- NOTE | 2019-04-08 10:32 | GENERAL SURGERY PROGRESS NOTE ---
DATE: 04/08/2019 SUBJECTIVE: Mr. Huerta is now 4 days after his open sigmoid resection for diverticular abscess. He is afebrile, heart rate 71, blood pressure 139/76. Bowel sounds are present. He has passed a little bit of flatus. He is taking liquids. PLAN: The plan today will be to advance him to solid food to see how he does. cc: MD Donald Laird MD
[2019-04-08] MEDS: LOVENOX SUBQ SCH (22:20)
[2019-04-08] MEDS: AMBIEN PO SCH (22:20)
[2019-04-09] MEDS: PERCOCET-10 PO PRN ×2 (04:56→09:03)
[2019-04-09] MEDS: INVANZ 1 GM/NS 1 GM/50 ML IVPB IV SCH (06:56)
[2019-04-09 07:18] VITALS: BP 116/67
--- NOTE | 2019-04-09 08:47 | GENERAL SURGERY PROGRESS NOTE ---
DATE: 04/09/2019 Mr. Huerta is better this morning. His abdomen is soft, but softer than yesterday. He has had multiple bowel movements and passing flatus. His wounds are fine. We will discharge him home today. He is to return to see Dr. Ramírez within a week for staple removal. We discussed wound care, activity, and diet. cc: MD Donald Laird MD
[2019-04-09] MEDS: COLACE PO SCH (09:04)
[2019-04-09] MEDS: TORADOL IV SCH (09:04)
[2019-04-09] MEDS: FLOMAX PO SCH (09:05)
[2019-04-09] MEDS: PERIDEX MT SCH (09:05)
--- NOTE | 2019-05-13 07:02 | DISCHARGE SUMMARY ---
ADMISSION DATE: 04/04/2019 DISCHARGE DATE: 04/09/2019 ADMITTING PHYSICIAN: Donald Ramírez MD ADMITTING DIAGNOSIS: Recurrent complicated diverticulitis. DISCHARGE DIAGNOSIS: Recurrent complicated diverticulitis with intraabdominal abscess. PROCEDURE: Robotic converted to open sigmoid colectomy with splenic flexure mobilization. HOSPITAL COURSE: He was admitted on 04/04/2019 for planned elective sigmoid colectomy. We initially planned a robotic approach. However, the degree of inflammation with intraabdominal abscess necessitated conversion to an open approach. For full details of the operation, please see the dictated operative report. Postoperatively, he had an uneventful stay. We used Toradol for pain. He was kept on Invanz postoperatively due to the abscess. By postop day 2, he was tolerating clear liquids and ambulating. On postop day 3, his abscess culture grew ESBL Escherichia coli sensitive to Bactrim, which he was discharged on. On postop day 4, he had begun passing flatus and was advanced was advanced to solid food and by postop day 5, he was having bowel movements, passing gas, ambulating and felt much better. He was hemodynamically stable. His wounds were healing well and he was discharged home. DISCHARGE INSTRUCTIONS: No heavy lifting. He may shower. He may eat a regular diet as tolerated. Follow up with Dr. Ramírez in 1 week and his primary care physician, Dr. Buck. DISCHARGE MEDICATIONS: Bactrim DS 1 p.o. b.i.d. x10 days, Percocet 10 mg 1 p.o. q.6 hours p.r.n. pain. cc: DO Donald Valadez MD
== END 2019-04-09 09:32 | disposition home or self-care (01) | DRG 329 ==
LOC: SURHOLD 05:40 → EDSTATUS 07:00 → 4N 07:34
PROVIDERS: ADMIT Surgery; ATTEND Surgery